=== PATIENT | male | born 1950 | race Caucasian/White ===

== ENCOUNTER 2017-03-10 13:05 | Emergency (ER) | payer BC ==
[~2017-03-10] VITALS: Ht 167.6 cm; Wt 89.3 kg
[~2017-03-10 13:05] MED LIST: ADULT LOW DOSE81 M1 PO; CIALIS20 MG PO; HYDROCODONE-AP1 EAC8 PO; KEPPRA500 MG PO; LANOXIN,DIGIT0.25 MG PO; PREVACID30 MG PO; SIMVASTATIN20 MG PO; TOPAMAX25 MG PO; VOLTAREN75 MG PO
[2017-03-10] MEDS ORDERED: KEFLEX500 MG PO (16:13)
[2017-03-10] MEDS ORDERED: PERCOCET 5/31 TABLET PO (16:13)
[2017-03-10 17:02] VITALS: BP 158/97
== END 2017-03-10 17:03 | disposition home or self-care (01) ==
LOC: EXP 13:05 → EME 13:05 → EXP 17:03
DX: S62.633B Displaced fracture of distal phalanx of left middle finger, initial encounter for open fracture (principal); W23.0XXA Caught, crushed, jammed, or pinched between moving objects, initial encounter
CPT/HCPCS: 73140; 99281; 99284; S0020

== ENCOUNTER 2018-03-15 05:54 | Emergency (ER) | payer OTHER ==
[~2018-03-15] VITALS: Ht 167.6 cm; Wt 92.4 kg
[~2018-03-15 05:54] MED LIST changes: +KEFLEX500 MG PO; +PERCOCET 5/31 TABLET PO
[2018-03-15 08:09] VITALS: BP 141/89
== END 2018-03-15 08:10 | disposition home or self-care (01) ==
LOC: EME 05:54
PROC: 3E0234Z Introduction of Serum, Toxoid and Vaccine into Muscle, Percutaneous Approach (ICD-10-PCS; principal; 2018-03-15)
DX: S20.212A Contusion of left front wall of thorax, initial encounter (principal); S80.812A Abrasion, left lower leg, initial encounter; S00.83XA Contusion of other part of head, initial encounter; W12.XXXA Fall on and from scaffolding, initial encounter; R06.02 Shortness of breath; Z79.82 Long term (current) use of aspirin; Z23 Encounter for immunization
CPT/HCPCS: 71046; 99281; 99284